=== PATIENT | male | born 1975 | race Caucasian/White ===

== ENCOUNTER 2019-04-02 16:47 | Emergency (ER) | payer MEDICARE, OTHER ==
[2019-04-02] MEDS ORDERED: SODIUM CHLORIDE 0.9% 1,000 ML IV STA (17:16)
[2019-04-02] MEDS ORDERED: methylPREDNISolone SOD SUCCI 125 MG/2 ML VIAL IV STA (17:16)
[2019-04-02] MEDS ORDERED: FAMOTIDINE 20 MG/2 ML VIAL IV STA (17:16)
[2019-04-02] MEDS: diphenhydrAMINE 50 MG CAP PO STA ×2 (17:36→17:37)
[2019-04-02] MEDS ORDERED: diphenhydrAMINE 50 MG/ML 1 ML VIAL IVP STA (17:37)
--- NOTE | 2019-04-02 18:02 | ED ---
Allergic Reaction HPI - General Chief complaint: Allergic Reaction Stated complaint: Allergic reaction Time Seen by Provider: 04/02/19 17:16 Source: patient, RN notes reviewed, old records reviewed, Caregiver Mode of arrival: wheelchair Limitations: no limitations - History of Present Illness Initial Comments: This is a 43-year-old male the ER for evaluation. Presents today for evaluation regarding ALLERGIC reaction. Fluid ALLERGIC ALLERGY, patient took EPIPEN history of fluid. Patient currently feeling better with still feeling off with itching. No shortness of breath and no feelings of syncope. Patient does feel heart racing MD Complaint: allergic reaction -: hour(s) Exposure: food Symptoms: itching Severity: moderate Treatment Prior to Arrival: epinephrine Previous Allergy History: prior ED visit(s), anaphylaxis - Related Data Previous Rx's Medication Instructions Recorded Famotidine [Pepcid] 20 mg PO BID #28 tablet 04/02/19 diphenhydrAMINE [Benadryl] 50 mg PO QID PRN #20 capsule 04/02/19 predniSONE 50 mg PO DAILY #5 tab 04/02/19 Allergies Allergy/AdvReac Type Severity Reaction Status Date / Time bee venom protein (honey bee) Allergy Unknown Verified 04/02/19 16:56 tree nut Allergy Unknown Verified 04/02/19 16:56 Review of Systems ROS Statement: Those systems with pertinent positive or pertinent negative responses have been documented in the HPI. ROS Other: All systems not noted in ROS Statement are negative. Past Medical History Additional Past Medical History / Comment(s): CEREBRAL PALSY, SPECIAL NEEDS. History of Any Multi-Drug Resistant Organisms: None Reported Past Surgical History: No Surgical Hx Reported Past Psychological History: No Psychological Hx Reported Smoking Status: Never smoker Past Alcohol Use History: None Reported Past Drug Use History: None Reported General Exam Limitations: no limitations General appearance: alert, in no apparent distress Head exam: Present: atraumatic, normocephalic, normal inspection Eye exam: Present: normal appearance, PERRL, EOMI. Absent: scleral icterus, conjunctival injection, periorbital swelling ENT exam: Present: normal exam, mucous membranes moist Neck exam: Present: normal inspection. Absent: tenderness, meningismus, lymphadenopathy Respiratory exam: Present: normal lung sounds bilaterally. Absent: respiratory distress, wheezes, rales, rhonchi, stridor Cardiovascular Exam: Present: regular rate, normal rhythm, normal heart sounds. Absent: systolic murmur, diastolic murmur, rubs, gallop, clicks GI/Abdominal exam: Present: soft, normal bowel sounds. Absent: distended, tenderness, guarding, rebound, rigid Extremities exam: Present: normal inspection, full ROM, normal capillary refill. Absent: tenderness, pedal edema, joint swelling, calf tenderness Back exam: Present: normal inspection Neurological exam: Present: alert, oriented X3, CN II-XII intact Psychiatric exam: Present: normal affect, normal mood Skin exam: Present: warm, dry, intact, normal color. Absent: rash Course Vital Signs 04/02/19 16:52 Temperature 98.2 F Pulse Rate 115 H Respiratory 18 Rate Blood Pressure 165/81 O2 Sat by Pulse 99 Oximetry - Reevaluation(s) Reevaluation #1: 04/02/19 18:01 medical record is reviewed Reevaluation #2: 04/02/19 18:01 symptoms improved Medical Decision Making - Medical Decision Making 23-year-old male the ER for evaluation is ALLERGIC reaction. Patient ALLERGIC reaction, resolving has no symptoms no distress and patient can be discharged home Disposition Clinical Impression: Allergic reaction, Tachycardia Disposition: HOME SELF-CARE Condition: Good Prescriptions: diphenhydrAMINE [Benadryl] 50 mg PO QID PRN #20 capsule PRN Reason: itching/rash Famotidine [Pepcid] 20 mg PO BID #28 tablet predniSONE 50 mg PO DAILY #5 tab Is patient prescribed a controlled substance at d/c from ED?: No Referrals: Nonstaff,Physician [Primary Care Provider] - 1-2 days
[2019-04-02 19:15] VITALS: BP 143/87; PULSE 77; RESP 18; TEMP 97.8
== END 2019-04-02 19:24 | disposition home or self-care (01) ==
LOC: EC 16:47
DX: T78.40XA Allergy, unspecified, initial encounter (principal); R00.0 Tachycardia, unspecified; G80.9 Cerebral palsy, unspecified; Z91.018 Allergy to other foods
CPT/HCPCS: 99283; 96374; 96375 ×2; 96361; J1200; J2930